=== PATIENT | female | born 1990 | race Two or more races ===

== ENCOUNTER 2023-12-07 08:56 | Outpatient (CLI) | payer OTHER | END 2023-12-07 09:15 | disposition home or self-care (01) | LOC: RAD 08:56 | PROVIDERS: ATTEND Obstetrics & Gynecology | DX: N97.0 Female infertility associated with anovulation (principal) ==

== ENCOUNTER 2024-10-12 10:38 | Outpatient (CLI) | payer OTHER | END 2024-10-12 11:50 | disposition home or self-care (01) | LOC: NST 10:38 | PROVIDERS: ATTEND Obstetrics & Gynecology Gynecology | DX: Z34.83 Encounter for supervision of other normal pregnancy, third trimester (principal) ==

== ENCOUNTER 2024-10-16 12:41 | Inpatient (IN) | payer OTHER ==
[~2024-10-16] VITALS: Ht 165.1 cm; Wt 73.5 kg
[2024-10-16 12:32] VITALS: BP 108/67
[2024-10-16 13:23] LABS: HEMOGLOBIN 11.9 g/dL (12.0-15.00); MEAN CELL VOLUME 92.1 fL (80.00-100.00); MEAN CORPUSCULAR HEMOGLOBIN 30.5 pg (27.00-32.0); MEAN CORPUSCULAR HGB CONC 33.1 g/dl (32.0-36.0); PLATELET COUNT 277 K/uL (150-450); RED BLOOD COUNT 3.92 M/uL (4.00-6.00); RED CELL DISTRIBUTION WIDTH 13.3 % (11.5-14.5)
[2024-10-16 13:31] LABS: URINE APPEARANCE Clear; URINE BILIRRUBIN Negative (NEGATIVE); URINE COLOR Yellow; URINE GLUCOSE Negative (NEGATIVE); URINE KETONE Negative (NEGATIVE); URINE LEUKOCYTE Large; URINE NITRATE Negative; URINE PROTEIN Negative (NEGATIVE); URINE UROBILINOGEN 0.2 E.U./dl
[2024-10-16 13:34] LABS: URINE BACTERIA 2002.9 uL (0.0-1933); URINE CAST 2.44 uL (0.0-1.40); URINE EPITHELIAL CELLS 51.7 uL (0.0-38.8); URINE RBC 2.2 uL (0.0-20.8); URINE WBC 78.3 uL (0.0-23.2)
[2024-10-16] MEDS ORDERED: MORPHINE SULFATE 4 MG/ML CARTRIDGE IV PRN (13:45)
[2024-10-16] MEDS ORDERED: RINGERS SOLUTION,LACTATED 1,000 ML IV SCH (13:45)
[2024-10-16] MEDS ORDERED: PRENATAL TABLE1 EAC1 PO (13:49)
[2024-10-16] MEDS ORDERED: ZYRTEC10 M3 PO (13:50)
[2024-10-16 13:52] LABS: INR < 0.93; PARTIAL THROMBOPLASTIN TIME 26.9 SECONDS (22.0-34.0); PROTHROMBIN TIME 9.9 SECONDS (9.0-11.5)
[2024-10-16 14:25] LABS: URINE BLOOD Trace
[2024-10-16 14:38] LABS: ALBUMIN 2.8 gm/dL (3.4-5.0); BILIRUBIN TOTAL 0.46 mg/dL (0.3-1.2); CALCIUM 9.6 mg/dL (8.5-10.1); CREATININE SERUM 0.57 mg/dL (0.55-1.02); GFR 121.41; GLOBULINA 3.6 G/DL (2.4-3.5); POTASSIUM 4.5 mEq/L (3.5-5.1); TOTAL PROTEIN 6.4 gm/dL (6.4-8.2)
[2024-10-16 15:30] VITALS: BP 101/62
[2024-10-16] MEDS ORDERED: MISOPROSTOL 25 MCG TABLET VAG ONE (15:45)
[2024-10-16] MEDS ORDERED: FAMOTIDINE/PF 20 MG in 0.9 % SODIUM CHLORIDE 8 ML IV PUSH PRN (16:45)
[2024-10-16 19:57] VITALS: BP 114/62
[2024-10-17] VITALS (7 sets, daily range): BP systolic 97–113; BP diastolic 60–72
[2024-10-17] MEDS ORDERED: OXYTOCIN 500 ML IV ONE (07:30)
[2024-10-17] MEDS ORDERED: MORPHINE SULFATE 2 MG/ML CARTRIDGE IV ONE (13:15)
[2024-10-17] MEDS ORDERED: DOCUSATE SODIUM 100MG CAP PO SCH (19:41)
[2024-10-17] MEDS ORDERED: IBUprofen 400 MG TABLET PO PRN (19:45)
[2024-10-17] MEDS ORDERED: CEFAZOLIN SODIUM 1,000 MG VIAL IV ONE (19:45)
[2024-10-17] MEDS ORDERED: METHYLERGONOVINE MALEATE 0.2 MG/ML AMPUL IV ONE (19:45)
[2024-10-17] MEDS ORDERED: OXYTOCIN 1,000 ML IV ONE (19:45)
[2024-10-17] MEDS ORDERED: CARBOPROST TROMETHAMINE 250 MCG/ML AMPUL IM ONE (19:45)
[2024-10-17] MEDS ORDERED: CHLORHEXIDINE GLUCONATE 120 ML BOTTLE TP SCH (19:45)
[2024-10-17 23:54] LABS: HEMATOCRIT 30.6 % (36.0-45.00); HEMOGLOBIN 10.2 g/dL (12.0-15.00); MEAN CELL VOLUME 91.8 fL (80.00-100.00); MEAN CORPUSCULAR HEMOGLOBIN 30.5 pg (27.00-32.0); MEAN CORPUSCULAR HGB CONC 33.2 g/dl (32.0-36.0); PLATELET COUNT 236 K/uL (150-450); RED BLOOD COUNT 3.34 M/uL (4.00-6.00)
[2024-10-18 00:01] VITALS: BP 98/63
[2024-10-18 03:12] VITALS: BP 96/61
[2024-10-18] MEDS ORDERED: SULFAMETHOXAZOLE/TRIMETHOPRIM DS 1 TAB PO SCH (09:00)
[2024-10-18] MEDS ORDERED: PNV,CALCIUM 72/IRON/FOLIC ACID 1 TAB TABLET PO SCH (09:00)
[2024-10-18] MEDS ORDERED: KETOROLAC TROMETHAMINE 10 MG TABLET PO SCH (12:00)
[2024-10-18 15:56] VITALS: BP 105/67
[2024-10-19 00:28] VITALS: BP 100/60
[2024-10-19] MEDS ORDERED: KETO10TA2 PO (09:24)
[2024-10-19 09:40] VITALS: BP 109/72
== END 2024-10-19 13:16 | disposition home or self-care (01) | DRG 805 ==
LOC: LDR 12:41 → OB/GYN 10-17 07:24
PROVIDERS: Obstetrics & Gynecology Gynecology; ADMIT Obstetrics & Gynecology; ATTEND Obstetrics & Gynecology
PROC: 3E0P7VZ Introduction of Hormone into Female Reproductive, Via Natural or Artificial Opening (ICD-10-PCS; 2024-10-16)
PROC: 4A1HXCZ Monitoring of Products of Conception, Cardiac Rate, External Approach (ICD-10-PCS; 2024-10-16)
PROC: 10D17Z9 Manual Extraction of Products of Conception, Retained, Via Natural or Artificial Opening (ICD-10-PCS; principal; 2024-10-19)
PROC: 0KQM0ZZ Repair Perineum Muscle, Open Approach (ICD-10-PCS; 2024-10-19)
PROC: 10E0XZZ Delivery of Products of Conception, External Approach (ICD-10-PCS; 2024-10-19)
PROC: 0UQMXZZ Repair Vulva, External Approach (ICD-10-PCS; 2024-10-19)
PROC: 0UQG7ZZ Repair Vagina, Via Natural or Artificial Opening (ICD-10-PCS; 2024-10-19)
PROC: 3E033VJ Introduction of Other Hormone into Peripheral Vein, Percutaneous Approach (ICD-10-PCS; 2024-10-19)
DX: O70.1 Second degree perineal laceration during delivery (principal); O41.1430 Placentitis, third trimester, not applicable or unspecified; Z37.0 Single live birth; O73.0 Retained placenta without hemorrhage; O62.2 Other uterine inertia; Z3A.40 40 weeks gestation of pregnancy; Z20.822 Contact with and (suspected) exposure to COVID-19